=== PATIENT | male | born 1970 | race African-American/Black ===

== ENCOUNTER 2016-09-24 13:45 | Emergency (ER) | payer SELFPAY ==
[~2016-09-24] VITALS: Ht 185.4 cm; Wt 87.0 kg
[~2016-09-24 13:45] MED LIST: CLIN1CAP5 PO; SULF1TAB47 PO
[2016-09-24 13:46] VITALS: BP 122/61; PULSE 94; RESP 20; TEMP 98.4; O2SAT 99
--- NOTE | 2016-09-24 13:58 | PD ---
HPI Chief Complaint: Skin Problem Time Seen by Provider: 13:58 Travel History International Travel<30 days: No Contact w/Intl Traveler<30days: No Traveled to known affect area: No History of Present Illness HPI 45-year-old male presents to emergency department for evaluation of right foot irritation. Patient states that he has had athlete's foot on his bilateral feet versus quite some time. He states that he has to wear boots frequently at work in his feet sweat a lot. Patient states that when his feet sweat they itch so he scratched them. He believes that he scratched a sore on his right foot which now is infected. Patient reports moderate erythema extending to the dorsum of the right foot. States that it is painful and burning. Denies any fever or chills. Denies any new injuries. He has no other symptoms to report. He is up-to-date on his tetanus vaccination. PFSH Past Medical History Cardiovascular Problems: Yes (open heart as a child) Diminished Hearing: No Immunizations Current: Yes Past Surgical History Cardiac Surgery: Yes (VALVE REPAIR AND NARROW ARTERY) Social History Alcohol Use: Yes (OCCAISIONAL) Tobacco Use: Yes (1/2 PPD) Allergies-Medications (Allergen,Severity, Reaction): Coded Allergies: Penicillin (Verified Allergy, Intermediate, RASH, 09/24/16) Reported Meds & Prescriptions Reported Meds & Active Scripts Active Clotrimazole Anti-Fungal Topical (Clotrimazole) 1% Cream 1 Applic TOPICAL BID Ibuprofen 800 Mg Tab 800 Mg PO Q8H PRN Keflex (Cephalexin) 250 Mg Cap 500 Mg PO Q6H 5 Days Bactrim DS (Sulfamethoxazole-Trimethoprim) 800-160 Mg Tab 1 Tab PO BID Review of Systems Except as stated in HPI: all other systems reviewed are Neg Physical Exam Narrative GENERAL: Well-nourished male patient, in no acute distress SKIN: Erythema of the dorsum of the toes extending to the dorsal right foot. There is an excoriation and crusting between the toes. The skin is cracked. HEAD: Atraumatic. Normocephalic. EYES: Pupils equal and round. No scleral icterus. No injection or drainage. ENT: No nasal bleeding or discharge. Mucous membranes pink and moist. NECK: Trachea midline. No JVD. CARDIOVASCULAR: Regular rate and rhythm. No murmur appreciated. RESPIRATORY: No accessory muscle use. Clear to auscultation. Breath sounds equal bilaterally. GASTROINTESTINAL: Abdomen soft, non-tender, nondistended. Hepatic and splenic margins not palpable. MUSCULOSKELETAL: No obvious deformities. No clubbing. No cyanosis. He has full flexion extension of the affected foot. NEUROLOGICAL: Awake and alert. No obvious cranial nerve deficits. Motor grossly within normal limits. Normal speech. PSYCHIATRIC: Appropriate mood and affect; insight and judgment normal. Data Data Last Documented VS Vital Signs Date Time Temp Pulse Resp B/P Pulse Ox O2 Delivery O2 Flow Rate FiO2 09/24/16 13:46 98.4 94 20 122/61 99 Room Air Orders Clotrimazole 1% Cream (Lotrimin 1% Cream (09/24/16 14:30) Sulfamet-Trimeth Ds 800-160 Mg (Bactrim (09/24/16 14:30) Cephalexin (Keflex) (09/24/16 14:30) MDM Medical Decision Making Medical Screen Exam Complete: Yes Emergency Medical Condition: Yes Medical Record Reviewed: Yes Differential Diagnosis Tinea pedis versus cellulitis versus skin abrasion versus other fungal infection versus erysipelas versus contact dermatitis Narrative Course 45-year-old male presents to emergency department for evaluation. Patient's findings are consistent with a tinea he does however I believe this is a secondary cellulitis as well. Patient will be started on oral antibiotics as well as topical cream. He is encouraged to follow-up with a chancellor. He is counseled on care. He agrees to return immediately with any acute worsening of symptoms. Diagnosis Primary Impression: Tinea pedis of right foot Additional Impression: Cellulitis of foot, right Referrals: [facility] Primary Care Physician Patient Instructions: Cellulitis (ED), General Instructions, Tinea Pedis (ED) Additional Instructions: Allow your feet to have air out time Follow-up with your primary provider Seek podiatry evaluation Wash the feet with warm soapy water and pat dry. Do not wipe it dry as this may excoriate your skin Return immediately to the emergency department with any acute worsening of symptoms Med/Other Pt SpecificInfo: Prescription(s) given Scripts Clotrimazole Topical (Clotrimazole Anti-Fungal Topical)1% Cream1 Applic TOPICAL BID #1 TUBE Ref 1 Prov:Cordelia Rae 09/24/16 Ibuprofen 800 Mg Uop479 Mg PO Q8H PRN (Pain/Inflammation) #30 TAB Ref 0 Prov:Cordelia Rae 09/24/16 Cephalexin (Keflex)250 Mg Ekx035 Mg PO Q6H 5 Days Ref 0 Prov:Cordelia Rae 09/24/16 Sulfamethoxazole-Trimethoprim (Bactrim DS)800-160 Mg Tab1 Tab PO BID #20 TAB Ref 0 Prov:Cordelia Rae 09/24/16 Disposition: 01 DISCHARGE HOME Condition: Stable Cordelia Rae September 24, 2016 13:58
[2016-09-24] MEDS ORDERED: CEPH-459 PO (14:17)
[2016-09-24] MEDS ORDERED: BACT800T5 PO (14:17)
[2016-09-24] MEDS ORDERED: IBUP800T23 PO (14:17)
[2016-09-24] MEDS ORDERED: CLOT1CRE6 TOPICAL (14:20)
[2016-09-24] MEDS ORDERED: SULFAMETHOXAZOLE-TRIMETHOPRIM DS 800-160 MG TAB PO ONE (14:30)
[2016-09-24] MEDS ORDERED: CLOTRIMAZOLE 1% CREAM 15 GM TOPICAL ONE (14:30)
[2016-09-24] MEDS ORDERED: CEPHALEXIN MONOHYDRATE 500 MG CAP PO ONE (14:30)
== END 2016-09-24 15:23 | disposition home or self-care (01) ==
LOC: NEPD 13:45
DX: B35.3 Tinea pedis (principal); L03.115 Cellulitis of right lower limb
CPT/HCPCS: 99284